=== PATIENT | female | born 1955 | race Caucasian/White ===

== ENCOUNTER 2018-06-28 09:14 | Inpatient (IN) | payer OTHER ==
[2018-06-28 11:09] LABS: TROPONIN-I < 0.012 ng/ml (0.000-0.120)
[2018-06-28] MEDS ORDERED: ONDANSETRON 4 MG INJ IV (12:00)
[2018-06-28] MEDS ORDERED: ACETAMINOPHEN 325 MG TAB PO ×2 (12:00→14:30)
[2018-06-28] MEDS ORDERED: LORAZEPAM 0.5 MG TAB PO (14:30)
[2018-06-28] MEDS ORDERED: NACL 0.9% 3 ML SYG IV (14:30)
[2018-06-28] MEDS ORDERED: DOCUSATE SODIUM 100 MG CAP PO (14:30)
[2018-06-28 14:50] LABS: CREATINE KINASE 219 IU/L (23-200)
[2018-06-28 15:04] LABS: CK INDEX 1.1; CK-MB 2.42 ng/ml (0.0-2.4); TROPONIN-I < 0.012 ng/ml (0.000-0.120)
[2018-06-28] MEDS ORDERED: GLUCOSE GEL 15 GRAM TUBE PO ×2 (15:30)
[2018-06-28] MEDS ORDERED: GLUCAGON 1 MG INJ IM (15:30)
[2018-06-28] MEDS ORDERED: GLUCOSE GEL 15 GRAM TUBE BUCCAL (15:30)
[2018-06-28] MEDS ORDERED: DEXTROSE 50% 50 ML SYRINGE IV ×2 (15:30)
[2018-06-28] MEDS: HYDROCODONE/APAP (5/325) TAB PO ×2 (15:54→20:55)
[2018-06-28] MEDS: INSULIN ASPART [NOVOLOG] 3 ML PEN SC ×3 (17:49→20:54)
[2018-06-28] MEDS ORDERED: NITROGLYCERIN (SL) 0.4 MG TAB SL (19:00)
[2018-06-28] MEDS: FAMOTIDINE 20 MG TAB PO (20:53)
[2018-06-28] MEDS: METOPROLOL 25 MG TAB PO (20:54)
[2018-06-28] MEDS: INSULIN GLARGINE [LANTus] (100 UNITS/ML) SYG SC (22:20)
[2018-06-28 22:38] LABS: CREATINE KINASE 220 IU/L (23-200)
[2018-06-28 22:53] LABS: CK INDEX 1.4; CK-MB 2.99 ng/ml (0.0-2.4); TROPONIN-I < 0.012 ng/ml (0.000-0.120)
[2018-06-28] MEDS: ZOLPIDEM 5 MG TAB PO (22:58)
[2018-06-29] MEDS: ACCU-CHEK XX (02:00)
[2018-06-29 07:50] LABS: ADD MAN DIFF? NO
[2018-06-29 07:55] LABS: BASOPHILS % 0.4 % (0.0-2.0); EOSINOPHILS % 0.9 % (0.0-7.0); HEMATOCRIT 32.1 % (37.0-47.0); HEMOGLOBIN 10.7 g/dl (12.0-16.0); LYMPHOCYTES # 1.6 10^3/ul (0.8-2.9); LYMPHOCYTES % 35.2 % (15.0-51.0); MEAN CORPUSCULAR HEMOGLOBIN 28.5 pg (29.0-33.0); MEAN CORPUSCULAR HGB CONC 33.3 g/dl (32.0-37.0); MEAN CORPUSCULAR VOLUME 85.6 fl (82.0-101.0); MEAN PLATELET VOLUME 10.4 fl (7.4-10.4); MONOCYTE # 0.5 10^3/ul (0.3-0.9); MONOCYTES % 9.7 % (0.0-11.0); NEUTROPHIL # 2.5 10^3/ul (1.6-7.5); NEUTROPHILS % 53.6 % (39.0-77.0); PLATELET COUNT 218 10^3/UL (140-415); RED BLOOD COUNT 3.75 10^6/ul (4.20-5.40); RED CELL DISTRIBUTION WIDTH 13.2 % (11.5-14.5)
[2018-06-29 07:55] LABS: WHITE BLOOD COUNT 4.6 10^3/ul (4.8-10.8)
[2018-06-29] MEDS: INSULIN ASPART [NOVOLOG] 3 ML PEN SC ×7 (07:55→20:56)
[2018-06-29 07:59] LABS: HEMOGLOBIN A1C 5.9 % (0-5.9)
[2018-06-29] MEDS: FAMOTIDINE 20 MG TAB PO ×2 (08:22→20:29)
[2018-06-29] MEDS: ASPIRIN 81 MG TAB PO (08:22)
[2018-06-29] MEDS: DOCUSATE SODIUM 100 MG CAP PO ×2 (08:22→20:29)
[2018-06-29] MEDS: METOPROLOL 25 MG TAB PO ×2 (08:23→20:30)
[2018-06-29] MEDS: ENOXAPARIN 40 MG/0.4 ML SYG SC (08:24)
[2018-06-29 08:37] LABS: ANION GAP 10 (5-13); BLOOD UREA NITROGEN 5 mg/dl (7-20); CALCIUM 9.7 mg/dl (8.4-10.2); CARBON DIOXIDE 25 mmol/L (21-31); CHLORIDE 105 mmol/L (97-110); CREATININE 0.52 mg/dl (0.44-1.00); Estimated GFR > 60 mL/min (>60); GLUCOSE 119 mg/dl (70-220); MAGNESIUM 1.4 mg/dl (1.7-2.5); POTASSIUM 3.9 mmol/L (3.5-5.1); SODIUM 140 mmol/L (135-144)
[2018-06-29] MEDS: HYDROCODONE/APAP (5/325) TAB PO ×2 (10:12→21:58)
[2018-06-29] MEDS: METOCLOPRAMIDE 10 MG INJ IV (12:16)
[2018-06-29] MEDS: KETOROLAC 30 MG INJ IV (12:17)
[2018-06-29] MEDS: MAGNESIUM SULFATE 2 GM/50 ML 50 ML IVPB (14:03)
[2018-06-29] MEDS: BISACODYL (EC) 5 MG TAB PO (16:08)
[2018-06-29] MEDS: INSULIN GLARGINE [LANTus] (100 UNITS/ML) SYG SC (20:00)
[2018-06-29] MEDS: ONDANSETRON 4 MG INJ IV (21:58)
[2018-06-29] MEDS: ZOLPIDEM 5 MG TAB PO (23:46)
[2018-06-30] MEDS: ACCU-CHEK XX (02:00)
[2018-06-30] MEDS: HYDROCODONE/APAP (5/325) TAB PO (06:46)
[2018-06-30 07:07] LABS: ADD MAN DIFF? NO
[2018-06-30 07:13] LABS: BASOPHILS % 0.4 % (0.0-2.0); EOSINOPHILS # 0.1 10^3/ul (0.0-0.5); EOSINOPHILS % 0.8 % (0.0-7.0); HEMATOCRIT 31.2 % (37.0-47.0); HEMOGLOBIN 10.4 g/dl (12.0-16.0); LYMPHOCYTES # 2.1 10^3/ul (0.8-2.9); LYMPHOCYTES % 29.3 % (15.0-51.0); MEAN CORPUSCULAR HEMOGLOBIN 28.5 pg (29.0-33.0); MEAN CORPUSCULAR HGB CONC 33.3 g/dl (32.0-37.0); MEAN CORPUSCULAR VOLUME 85.5 fl (82.0-101.0); MEAN PLATELET VOLUME 10.5 fl (7.4-10.4); MONOCYTE # 0.5 10^3/ul (0.3-0.9); MONOCYTES % 7.5 % (0.0-11.0); NEUTROPHIL # 4.5 10^3/ul (1.6-7.5); NEUTROPHILS % 61.7 % (39.0-77.0); PLATELET COUNT 228 10^3/UL (140-415); RED BLOOD COUNT 3.65 10^6/ul (4.20-5.40); RED CELL DISTRIBUTION WIDTH 13.2 % (11.5-14.5)
[2018-06-30 07:13] LABS: WHITE BLOOD COUNT 7.2 10^3/ul (4.8-10.8)
[2018-06-30 07:37] LABS: ANION GAP 10 (5-13); BLOOD UREA NITROGEN 7 mg/dl (7-20); CALCIUM 9.8 mg/dl (8.4-10.2); CARBON DIOXIDE 28 mmol/L (21-31); CHLORIDE 97 mmol/L (97-110); CREATININE 0.57 mg/dl (0.44-1.00); Estimated GFR > 60 mL/min (>60); GLUCOSE 143 mg/dl (70-220); MAGNESIUM 1.5 mg/dl (1.7-2.5); POTASSIUM 3.9 mmol/L (3.5-5.1); SODIUM 135 mmol/L (135-144)
[2018-06-30] MEDS: DOCUSATE SODIUM 100 MG CAP PO ×2 (08:23→21:12)
[2018-06-30] MEDS: ASPIRIN 81 MG TAB PO (08:23)
[2018-06-30] MEDS: METOPROLOL 25 MG TAB PO ×2 (08:25→21:13)
[2018-06-30] MEDS: FAMOTIDINE 20 MG TAB PO ×2 (08:25→21:12)
[2018-06-30] MEDS: ENOXAPARIN 40 MG/0.4 ML SYG SC (08:27)
[2018-06-30] MEDS: INSULIN ASPART [NOVOLOG] 3 ML PEN SC ×7 (08:28→21:00)
[2018-06-30] MEDS: ONDANSETRON 4 MG INJ IV (10:31)
[2018-06-30] MEDS ORDERED: ACET/BUTAL/CAFF TAB PO (11:30)
[2018-06-30] MEDS: GABAPENTIN 100 MG CAP PO ×2 (12:01→21:12)
[2018-06-30] MEDS: LINAGLIPTIN 5 MG TABLET PO (12:01)
[2018-06-30] MEDS: LISINOPRIL 20 MG TAB PO (12:02)
[2018-06-30] MEDS: MAGNESIUM SULFATE 3 GM in DEXTROSE 5% 100 ML IVPB (12:02)
[2018-06-30 16:57] LABS: ADD UMIC NO; UR ASCORBIC ACID NEGATIVE (NEGATIVE); UR BILIRUBIN (Dip) NEGATIVE (NEGATIVE); UR BLOOD (Dip) NEGATIVE (NEGATIVE); UR CLARITY CLEAR (CLEAR); UR COLOR STRAW (YELLOW); UR GLUCOSE (Dip) NEGATIVE (NEGATIVE); UR KETONES (Dip) NEGATIVE (NEGATIVE); UR LEUKOCYTE ESTERASE (Dip) NEGATIVE Leu/ul (NEGATIVE); UR NITRITE (Dip) NEGATIVE (NEGATIVE); UR SPECIFIC GRAVITY (Dip) 1.004 (1.003-1.030); UR TOTAL PROTEIN (Dip) NEGATIVE (NEGATIVE); UR UROBILINOGEN (Dip) NEGATIVE (NEGATIVE)
[2018-06-30] MEDS: MAGNESIUM CITRATE 300 ML BTL PO (17:33)
[2018-06-30] MEDS: INSULIN GLARGINE [LANTus] (100 UNITS/ML) SYG SC (21:27)
[2018-06-30] MEDS: ZOLPIDEM 5 MG TAB PO (22:04)
[2018-07-01] MEDS: ACCU-CHEK XX (01:25)
[2018-07-01] MEDS: INSULIN ASPART [NOVOLOG] 3 ML PEN SC ×7 (07:55→21:00)
[2018-07-01] MEDS: ASPIRIN 81 MG TAB PO (08:18)
[2018-07-01] MEDS: DOCUSATE SODIUM 100 MG CAP PO ×2 (08:18→20:07)
[2018-07-01] MEDS: GABAPENTIN 100 MG CAP PO ×2 (08:18→20:07)
[2018-07-01] MEDS: LINAGLIPTIN 5 MG TABLET PO (08:18)
[2018-07-01] MEDS: FAMOTIDINE 20 MG TAB PO ×2 (08:19→20:07)
[2018-07-01] MEDS: LISINOPRIL 20 MG TAB PO (08:19)
[2018-07-01] MEDS: METOPROLOL 25 MG TAB PO ×2 (08:19→20:08)
[2018-07-01] MEDS: ENOXAPARIN 40 MG/0.4 ML SYG SC (08:30)
[2018-07-01] MEDS ORDERED: NON-FORMULARY/PATIENT OWN MED (Sitagliptin* (Januvia*) 100 MG) PO (09:00)
[2018-07-01] MEDS: REGADENOSON 0.4 MG/5 ML SYG (10:57)
[2018-07-01] MEDS: MAGNESIUM SULFATE 3 GM in DEXTROSE 5% 100 ML IVPB ×2 (12:19→12:31)
[2018-07-01] MEDS: INSULIN GLARGINE [LANTus] (100 UNITS/ML) SYG SC (20:21)
[2018-07-01] MEDS: ZOLPIDEM 5 MG TAB PO (23:12)
[2018-07-02] MEDS: ACCU-CHEK XX (02:00)
[2018-07-02 07:10] LABS: ADD MAN DIFF? NO; BASOPHILS % 0.3 % (0.0-2.0); EOSINOPHILS # 0.1 10^3/ul (0.0-0.5); EOSINOPHILS % 1.7 % (0.0-7.0); HEMATOCRIT 33.4 % (37.0-47.0); LYMPHOCYTES # 1.9 10^3/ul (0.8-2.9); LYMPHOCYTES % 32.1 % (15.0-51.0); MEAN CORPUSCULAR HEMOGLOBIN 29.1 pg (29.0-33.0); MEAN CORPUSCULAR HGB CONC 32.9 g/dl (32.0-37.0); MEAN CORPUSCULAR VOLUME 88.4 fl (82.0-101.0); MEAN PLATELET VOLUME 10.2 fl (7.4-10.4); MONOCYTE # 0.6 10^3/ul (0.3-0.9); MONOCYTES % 9.3 % (0.0-11.0); NEUTROPHIL # 3.3 10^3/ul (1.6-7.5); NEUTROPHILS % 56.4 % (39.0-77.0); PLATELET COUNT 254 10^3/UL (140-415); RED BLOOD COUNT 3.78 10^6/ul (4.20-5.40); RED CELL DISTRIBUTION WIDTH 13.4 % (11.5-14.5)
[2018-07-02 07:10] LABS: WHITE BLOOD COUNT 5.9 10^3/ul (4.8-10.8)
[2018-07-02 07:29] LABS: INR 1.03; PROTIME 13.6 Sec (11.9-14.9); PT RATIO 1.1
[2018-07-02 07:47] LABS: LIPASE 103 U/L (23-300)
[2018-07-02 07:55] LABS: ALANINE AMINOTRANSFERASE 28 IU/L (13-69); ALBUMIN 4.2 g/dl (3.3-4.9); ALBUMIN/GLOBULIN RATIO 1.44; ALKALINE PHOSPHATASE 55 IU/L (42-121); ANION GAP 8 (5-13); ASPARTATE AMINO TRANSFERASE 25 IU/L (15-46); BILIRUBIN,INDIRECT 0.5 mg/dl (0-1.1); BILIRUBIN,TOTAL 0.5 mg/dl (0.2-1.3); BLOOD UREA NITROGEN 11 mg/dl (7-20); CALCIUM 10.1 mg/dl (8.4-10.2); CARBON DIOXIDE 30 mmol/L (21-31); CHLORIDE 100 mmol/L (97-110); CREATININE 0.64 mg/dl (0.44-1.00); Estimated GFR > 60 mL/min (>60); GLUCOSE 110 mg/dl (70-220); MAGNESIUM 1.7 mg/dl (1.7-2.5); POTASSIUM 4.8 mmol/L (3.5-5.1); SODIUM 138 mmol/L (135-144); TOTAL PROTEIN 7.1 g/dl (6.1-8.1)
[2018-07-02] MEDS: INSULIN ASPART [NOVOLOG] 3 ML PEN SC ×6 (07:55→17:55)
[2018-07-02 08:16] LABS: THYROID STIMULATING HORMONE 0.489 MIU/L (0.465-4.680)
[2018-07-02] MEDS: GABAPENTIN 100 MG CAP PO (08:23)
[2018-07-02] MEDS: FAMOTIDINE 20 MG TAB PO (08:23)
[2018-07-02] MEDS: DOCUSATE SODIUM 100 MG CAP PO (08:23)
[2018-07-02] MEDS: ASPIRIN 81 MG TAB PO (08:23)
[2018-07-02] MEDS: LISINOPRIL 20 MG TAB PO (08:24)
[2018-07-02] MEDS: METOPROLOL 25 MG TAB PO (08:24)
[2018-07-02] MEDS: LINAGLIPTIN 5 MG TABLET PO (08:24)
[2018-07-02] MEDS: ENOXAPARIN 40 MG/0.4 ML SYG SC (08:29)
[2018-07-02] MEDS: TOPIRAMATE 25 MG TAB PO (12:11)
[2018-07-02] MEDS ORDERED: GLUCAGON 1 MG INJ IM (19:30)
[2018-07-02] MEDS ORDERED: GLUCOSE GEL 15 GRAM TUBE PO ×2 (19:30)
[2018-07-02] MEDS ORDERED: GLUCOSE GEL 15 GRAM TUBE BUCCAL (19:30)
[2018-07-02] MEDS ORDERED: DEXTROSE 50% 50 ML SYRINGE IV ×2 (19:30)
[2018-07-02] MEDS ORDERED: GABAPENTIN 300 MG CAP PO (21:00)
[2018-07-02] MEDS ORDERED: metFORMIN 500 MG TAB PO (21:00)
[2018-07-02] MEDS ORDERED: ATORVASTATIN 20 MG TAB PO (21:00)
[2018-07-02] MEDS ORDERED: INSULIN GLARGINE [LANtus] 3 ML PEN SC (21:00)
[2018-07-02] MEDS ORDERED: traZODone 50 MG TAB PO (21:00)
[2018-07-03] MEDS ORDERED: METOPROLOL (XL) 25 MG TAB PO (09:00)
[2018-07-03] MEDS ORDERED: SERTRALINE 50 MG TAB PO (09:00)
[2018-07-03] MEDS ORDERED: QUINAPRIL HCL 10 MG PO (09:00)
== END 2018-07-02 18:59 | disposition home or self-care (01) | DRG 313 ==
LOC: E/R 09:14 → TEL 11:41
PROVIDERS: Family Medicine
DX: R07.89 Other chest pain (principal); E11.9 Type 2 diabetes mellitus without complications; I10 Essential (primary) hypertension; E78.5 Hyperlipidemia, unspecified; M19.90 Unspecified osteoarthritis, unspecified site; F32.9 Major depressive disorder, single episode, unspecified; R51 Headache; K59.00 Constipation, unspecified; Z79.4 Long term (current) use of insulin; Z79.84 Long term (current) use of oral hypoglycemic drugs
CPT/HCPCS: 36415; 70450; 70552; 71045; 78452; 80048; 80053; 81003; 82550; 82553; 82962; 83036; 83690; 83735; 84443; 84484; 85025; 85610; 85651; 93005; 93017; 93306; 99217; 99285-25; G0378

== ENCOUNTER 2019-01-24 17:29 | Emergency (ER) | payer OTHER ==
[2019-01-24] MEDS: FAMOTIDINE 20 MG INJ IV (21:12)
[2019-01-24] MEDS: ONDANSETRON 4 MG INJ IV (21:12)
[2019-01-24 21:14] LABS: ADD MAN DIFF? NO
[2019-01-24 21:16] LABS: WHITE BLOOD COUNT 7.4 10^3/ul (4.8-10.8)
[2019-01-24 21:16] LABS: BASOPHILS % 0.4 % (0.0-2.0); EOSINOPHILS # 0.1 10^3/ul (0.0-0.5); EOSINOPHILS % 0.8 % (0.0-7.0); HEMATOCRIT 29.5 % (37.0-47.0); HEMOGLOBIN 10.3 g/dl (12.0-16.0); LYMPHOCYTES # 1.8 10^3/ul (0.8-2.9); LYMPHOCYTES % 24.3 % (15.0-51.0); MEAN CORPUSCULAR HEMOGLOBIN 29.1 pg (29.0-33.0); MEAN CORPUSCULAR HGB CONC 34.9 g/dl (32.0-37.0); MEAN CORPUSCULAR VOLUME 83.3 fl (82.0-101.0); MEAN PLATELET VOLUME 9.8 fl (7.4-10.4); MONOCYTE # 0.5 10^3/ul (0.3-0.9); MONOCYTES % 6.9 % (0.0-11.0); NEUTROPHILS % 67.5 % (39.0-77.0); PLATELET COUNT 221 10^3/UL (140-415); RED BLOOD COUNT 3.54 10^6/ul (4.20-5.40); RED CELL DISTRIBUTION WIDTH 12.9 % (11.5-14.5)
[2019-01-24 21:21] LABS: ADD UMIC YES; UR ASCORBIC ACID NEGATIVE (NEGATIVE); UR BILIRUBIN (Dip) NEGATIVE (NEGATIVE); UR BLOOD (Dip) NEGATIVE (NEGATIVE); UR CLARITY CLEAR (CLEAR); UR COLOR YELLOW (YELLOW); UR GLUCOSE (Dip) NEGATIVE (NEGATIVE); UR KETONES (Dip) TRACE mg/dL (NEGATIVE); UR LEUKOCYTE ESTERASE (Dip) NEGATIVE Leu/ul (NEGATIVE); UR NITRITE (Dip) NEGATIVE (NEGATIVE); UR RBC 0 /HPF (0-5); UR SPECIFIC GRAVITY (Dip) 1.018 (1.003-1.030); UR TOTAL PROTEIN (Dip) 1+ mg/dl (NEGATIVE); UR UROBILINOGEN (Dip) NEGATIVE (NEGATIVE); UR WBC 0 /HPF (0-5)
[2019-01-24 21:35] LABS: ALANINE AMINOTRANSFERASE 21 IU/L (13-69); ALBUMIN 4.3 g/dl (3.3-4.9); ALBUMIN/GLOBULIN RATIO 1.34; ALKALINE PHOSPHATASE 55 IU/L (42-121); AMYLASE 91 U/L (11-123); ANION GAP 12 (5-13); ASPARTATE AMINO TRANSFERASE 24 IU/L (15-46); BILIRUBIN,INDIRECT 0.5 mg/dl (0-1.1); BILIRUBIN,TOTAL 0.5 mg/dl (0.2-1.3); BLOOD UREA NITROGEN 7 mg/dl (7-20); CALCIUM 8.9 mg/dl (8.4-10.2); CARBON DIOXIDE 27 mmol/L (21-31); CHLORIDE 88 mmol/L (97-110); CREATININE 0.56 mg/dl (0.44-1.00); Estimated GFR > 60 mL/min (>60); GLUCOSE 177 mg/dl (70-220); LIPASE 105 U/L (23-300); SODIUM 127 mmol/L (135-144); TOTAL PROTEIN 7.5 g/dl (6.1-8.1)
[2019-01-24 21:36] LABS: PROTIME 13.3 Sec (11.9-14.9)
[2019-01-24 21:37] LABS: PARTIAL THROMBOPLASTIN TIME 28.9 Sec (23.0-35.0)
[2019-01-24 21:46] LABS: TROPONIN-I < 0.012 ng/ml (0.000-0.120)
[2019-01-24] MEDS: SOD CHLORIDE 0.9% 1,000 ML IV (23:10)
[2019-01-24] MEDS: MECLIZINE 12.5 MG TAB PO (23:16)
[2019-01-25] MEDS: SOD CHLORIDE 0.9% 1,000 ML IV (00:10)
== END 2019-01-25 00:40 | disposition home or self-care (01) ==
LOC: FTE 01-25 00:40
DX: E87.1 Hypo-osmolality and hyponatremia (principal); E11.9 Type 2 diabetes mellitus without complications; I10 Essential (primary) hypertension; E86.0 Dehydration; R07.9 Chest pain, unspecified; Z79.4 Long term (current) use of insulin; Z79.82 Long term (current) use of aspirin
CPT/HCPCS: 71046; 80053; 81001; 82150; 83690; 84484; 85025; 85610; 85730; 87086; 93005; 96361; 96374; 96375; 99285-25